=== PATIENT | male | born 1995 | race Caucasian/White ===

== ENCOUNTER 2019-02-20 11:18 | Emergency (ER) | payer OTHER, SELFPAY ==
[2019-02-20 11:20] VITALS: BP 147/81; PULSE 88; RESP 14; TEMP 36.7; O2SAT 98
--- NOTE | 2019-02-20 11:35 | W.ED.GENAD ---
Discharge Plan Disposition Patient Disposition: HOME Condition: Good Discharge Details Chief Complaint: Orthopedic Clinical Impression: Laceration of right wrist Primary Care Provider: Akash Perdomo ED Provider: Anabell Carpenter Home Meds and New Rx's Prescriptions: New ibuprofen 600 mg tablet 600 mg PO QID PRN (Reason: pain) Qty: 20 RF: 0 Discharge Instructions Instructions: Laceration (ED) Additional Instructions: Encourage rest, ice, elevation. Tylenol and/or ibuprofen as needed for discomfort. Continue to use the wrist brace to help with discomfort. You will need follow-up with occupational health, please call the number listed below to schedule follow-up appointment next week. Suture removal as advised by previous emergency department. Please continue to monitor wound for signs of infection including redness, warmth, drainage, increased pain, fever/chills. If you develop these or other new/worsening symptoms please seek care urgently once again Stand Alone Forms: Work Release Referrals: Khadijah Maria MD [ [facility] STAFF PHYSICIAN] - (occupational health: [phone]) Akash Perdomo [Primary Care Provider] - Medical Decision Making Patient is a 24 year old RHD male presenting today with c/c of right wrist pain. 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 Reports at that time he fell onto a pain slicing the anterior aspect of the wrist. Patient has a 5 cm laceration that appears will well approximated with simple interrupted sutures were placed at an outside emergency department. He reports that while the wound appears to be healing quite well, he continues to have discomfort has been making it difficult for him to perform his typical daily activities. States that the pain from the laceration seems to radiate proximally. No pain with range of motion of the elbow, full range of motion of the elbow and forearm. Full range of motion of the wrist with discomfort elicited only around the laceration. Two-point discrimination is intact although the patient is endorsing some tingling into the right ring finger. No ligamentous deficits noted. He reports this is also assessed at the outside facility without any evidence of ligamentous or bony abnormalities. Patient reports his primary reason for being here is for a work note. Work note will be given. As advised that dressing the wound and applying a wrist brace may help with his discomfort as it is directly over the extensor surface. We discussed the signs symptoms of infection and when to seek care urgently once again. Advised he have sutures out as advised by previous ED. I advised that he will need to be reassessed by occupational health, contacted them but they are unable to remove sutures. He will contact them to schedule follow up. Prescription for Ibuprofen was given as was work note. All of his quesitons and concerns were addressed, he is in agreement with this plan. HPI General Mode of arrival: ambulatory. Date/Time Provider Initiated Documentation: 02/20/19 11:18. Limitations to Documentation: no limitations. Information obtained by: patient and RN notes reviewed. History of Present Illness 24 year old M presents to the emergency department with the chief complaint of right wrist pain, described as moderate, with intensity rated at 5. Quality is described as aching, and is localized to the right and upper extremity. Patient proximal. Patient started experiencing this day(s) (5) and it has been intermittent. Immobilization improves symptom(s), Movement worsens symptoms . Patient notes other (tingling right ring finger). Patient did receive the following treatments prior to arrival, other (sutures placed) Related Data Home Medications Medication Instructions Recorded Confirmed ibuprofen 600 mg PO QID PRN #20 tab 02/20/19 Previous Rx's Medication Instructions Recorded ibuprofen 600 mg PO QID PRN #20 tab 02/20/19 Allergies Allergy/AdvReac Type Severity Reaction Status Date / Time No Known Allergies Allergy Unverified 02/20/19 11:25 General Stated Complaint: Orthopedic AYLEEN: 3 Review of Systems Constitutional Reports as per HPI, Denies chills, Denies fever(s), Denies headache(s) and Denies weakness ENT Denies headache(s) Cardiovascular Reports as per HPI Respiratory Reports as per HPI and Denies cough Musculoskeletal Reports as per HPI and Reports tingling Integumentary/Breasts Reports as per HPI, Denies rash and Denies wounds Neurologic Reports as per HPI, Denies headache(s), Reports tingling, Denies paresthesias and Denies weakness PFSH Family History Mother No problems noted. Father No problems noted. Sister No problems noted. Brother No problems noted. Grandfather No problems noted. Grandfather No problems noted. Grandmother No problems noted. Grandmother No problems noted. Other Asthma Hyperlipidemia Social History Smoking/Tobacco Use Status: Current every day Alcohol Intake: never Drug use: Daily Substance use type: marijuana Do you feel safe at home: Yes Do you feel safe in your relationship?: Yes Exam Const General: cooperative, healthy appearing, comfortable, no acute distress, well developed and well groomed Nutritional Appearance: average body habitus and well nourished Orientation: alert and awake Resp Effort & Inspection: normal respiratory effort, able to speak in complete sentences and no respiratory distress Cardio Rate: regular rate Rhythm: regular rhythm Skin Trauma: laceration (anterior right wrist 5cm, sutured) Neuro General: alert and awake Cognition: normal cognition Speech: speech normal Gait: normal gait Motor: muscle tone normal throughout Sensory Exam: no sensory deficits noted (2 point discrimination intact) Extrem General: full ROM, normal capillary refill, no joint enlargement and normal gait Right upper extremity: full ROM, normal capillary refill, no joint enlargement, elbow/forearm Details: normal to inspection and normal ROM; no tenderness and no swelling and wrist Details: tenderness (around laceration) Location: not of the anatomic snuffbox, swelling (soft tissue around laceration), normal ROM and laceration; no unusual warmth, no ecchymosis and no deformity; abnormal to inspection (laceration as above) Psych Appearance: grossly normal and well kempt Mental Status: mental status grossly normal Speech and Movement: speech and movement normal Course Vital Signs Temperature 36.7 C 02/20/19 11:20 Pulse 88 02/20/19 11:20 Respiratory Rate 14 02/20/19 11:20 Blood Pressure 147/81 H 02/20/19 11:20 Pulse Oximetry 98 02/20/19 11:20 Temperature 36.7 C 02/20/19 11:20 Temperature Source Skin 02/20/19 11:20 Pulse 88 02/20/19 11:20 Respiratory Rate 14 02/20/19 11:20 Respiratory Effort 02/20/19 11:27 Blood Pressure 147/81 H 02/20/19 11:20 Blood Pressure Position Sitting 02/20/19 11:20 Pulse Oximetry 98 02/20/19 11:20 Oxygen Delivery Method Room Air 02/20/19 11:20 Oxygen Flow Rate 0 02/20/19 11:20 Pain Level 5 02/20/19 11:20
--- NOTE | 2019-02-20 11:45 | ED.GENADUL_ITS ---
Discharge Plan Disposition Patient Disposition: HOME Condition: Good Discharge Details Chief Complaint: Orthopedic Clinical Impression: Laceration of right wrist Primary Care Provider: Akash Perdomo ED Provider: Anabell Carpenter Home Meds and New Rx's Prescriptions: New ibuprofen 600 mg tablet 600 mg PO QID PRN (Reason: pain) Qty: 20 RF: 0 Discharge Instructions Instructions: Laceration (ED) Additional Instructions: Encourage rest, ice, elevation. Tylenol and/or ibuprofen as needed for discomfort. Continue to use the wrist brace to help with discomfort. You will need follow-up with occupational health, please call the number listed below to schedule follow-up appointment next week. Suture removal as advised by previous emergency department. Please continue to monitor wound for signs of infection including redness, warmth, drainage, increased pain, fever/chills. If you develop these or other new/worsening symptoms please seek care urgently once again Stand Alone Forms: Work Release Referrals: Khadijah Maria MD [ [facility] STAFF PHYSICIAN] - (occupational health: [phone]) Akash Perdomo [Primary Care Provider] - Medical Decision Making Patient is a 24 year old RHD male presenting today with c/c of right wrist pain. 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 Reports at that time he fell onto a pain slicing the anterior aspect of the wrist. Patient has a 5 cm laceration that appears will well approximated with simple interrupted sutures were placed at an outside emergency department. He reports that while the wound appears to be healing quite well, he continues to have discomfort has been making it difficult for him to perform his typical daily activities. States that the pain from the laceration seems to radiate proximally. No pain with range of motion of the elbow, full range of motion of the elbow and forearm. Full range of motion of the wrist with discomfort elicited only around the laceration. Two-point discrimination is intact although the patient is endorsing some tingling into the right ring finger. No ligamentous deficits noted. He reports this is also assessed at the outside facility without any evidence of ligamentous or bony abnormalities. Patient reports his primary reason for being here is for a work note. Work note will be given. As advised that dressing the wound and applying a wrist brace may help with his discomfort as it is directly over the extensor surface. We discussed the signs symptoms of infection and when to seek care urgently once again. Advised he have sutures out as advised by previous ED. I advised that he will need to be reassessed by occupational health, contacted them but they are unable to remove sutures. He will contact them to schedule follow up. Prescription for Ibuprofen was given as was work note. All of his quesitons and concerns were addressed, he is in agreement with this plan. HPI General Mode of arrival: ambulatory . Date/Time Provider Initiated Documentation: 02/20/19 11:18 . Limitations to Documentation: no limitations . Information obtained by: patient and RN notes reviewed . History of Present Illness 24 year old M presents to the emergency department with the chief complaint of right wrist pain, described as moderate, with intensity rated at 5. Quality is described as aching, and is localized to the right and upper extremity. Patient proximal. Patient started experiencing this day(s) (5) and it has been intermittent. Immobilization improves symptom(s), Movement worsens symptoms . Patient notes other (tingling right ring finger). Patient did receive the following treatments prior to arrival, other (sutures placed) Related Data Home Medications Medication Instructions Recorded Confirmed ibuprofen 600 mg PO QID PRN #20 tab 02/20/19 Previous Rx's Medication Instructions Recorded ibuprofen 600 mg PO QID PRN #20 tab 02/20/19 Allergies Allergy/AdvReac Type Severity Reaction Status Date / Time No Known Allergies Allergy Unverified 02/20/19 11:25 General Stated Complaint: Orthopedic AYLEEN: 3 Review of Systems Constitutional Reports as per HPI, Denies chills, Denies fever(s), Denies headache(s) and Denies weakness ENT Denies headache(s) Cardiovascular Reports as per HPI Respiratory Reports as per HPI and Denies cough Musculoskeletal Reports as per HPI and Reports tingling Integumentary/Breasts Reports as per HPI, Denies rash and Denies wounds Neurologic Reports as per HPI, Denies headache(s), Reports tingling, Denies paresthesias and Denies weakness PFSH Family History Mother No problems noted. Father No problems noted. Sister No problems noted. Brother No problems noted. Grandfather No problems noted. Grandfather No problems noted. Grandmother No problems noted. Grandmother No problems noted. Other Asthma Hyperlipidemia Social History Smoking/Tobacco Use Status: Current every day Alcohol Intake: never Drug use: Daily Substance use type: marijuana Do you feel safe at home: Yes Do you feel safe in your relationship?: Yes Exam Const General: cooperative, healthy appearing, comfortable, no acute distress, well developed and well groomed Nutritional Appearance: average body habitus and well nourished Orientation: alert and awake Resp Effort & Inspection: normal respiratory effort, able to speak in complete sentences and no respiratory distress Cardio Rate: regular rate Rhythm: regular rhythm Skin Trauma: laceration (anterior right wrist 5cm, sutured) Neuro General: alert and awake Cognition: normal cognition Speech: speech normal Gait: normal gait Motor: muscle tone normal throughout Sensory Exam: no sensory deficits noted (2 point discrimination intact) Extrem General: full ROM, normal capillary refill, no joint enlargement and normal gait Right upper extremity: full ROM, normal capillary refill, no joint enlargement, elbow/forearm Details: normal to inspection and normal ROM; no tenderness and no swelling and wrist Details: tenderness (around laceration) Location: not of the anatomic snuffbox, swelling (soft tissue around laceration), normal ROM and laceration; no unusual warmth, no ecchymosis and no deformity; abnormal to inspection (laceration as above) Psych Appearance: grossly normal and well kempt Mental Status: mental status grossly normal Speech and Movement: speech and movement normal Course Vital Signs Temperature 36.7 C 02/20/19 11:20 Pulse 88 02/20/19 11:20 Respiratory Rate 14 02/20/19 11:20 Blood Pressure 147/81 H 02/20/19 11:20 Pulse Oximetry 98 02/20/19 11:20 Temperature 36.7 C 02/20/19 11:20 Temperature Source Skin 02/20/19 11:20 Pulse 88 02/20/19 11:20 Respiratory Rate 14 02/20/19 11:20 Respiratory Effort 02/20/19 11:27 Blood Pressure 147/81 H 02/20/19 11:20 Blood Pressure Position Sitting 02/20/19 11:20 Pulse Oximetry 98 02/20/19 11:20 Oxygen Delivery Method Room Air 02/20/19 11:20 Oxygen Flow Rate 0 02/20/19 11:20 Pain Level 5 02/20/19 11:20
--- NOTE | 2019-02-20 13:40 | PDOC.ERCMPRO ---
Care Management Progress Note 02/20-Anabell QUINTERO requested assistance with a Occupational Health f/u for laceration of right wrist. This is a work related injury. 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 Alexander was seen in another emergency department about 5 days ago for stitches. Presents to [facility] ED today for pain. Alexander works for [employer]. This CM called Occupation Health an spoke with NORAH Ramirez who stated they could see Alexander in f/u. Marlin at [facility] scheduled patient for Monday, 02/26 at 3:00. This CM called Alexander and he states he can make this appt.
--- NOTE | 2019-02-20 13:43 | CMPROGNOTE_ITS ---
Care Management Progress Note 02/20-Anabell QUINTERO requested assistance with a Occupational Health f/u for laceration of right wrist. This is a work related injury. 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 Alexander was seen in another emergency department about 5 days ago for stitches. Presents to [facility] ED today for pain. Alexander works for [employer]. This CM called Occupation Health an spoke with NORAH Ramirez who stated they could see Alexander in f/u. Marlin at [facility] scheduled patient for Monday, 02/26 at 3:00. This CM called Alexander and he states he can make this appt.
== END 2019-02-20 12:10 | disposition home or self-care (01) ==
LOC: ER 12:48
PROVIDERS: Emergency Provider Physician Assistant; PCP Family Medicine
DX: M25.531 Pain in right wrist (principal); S61.511D Laceration without foreign body of right wrist, subsequent encounter; R20.2 Paresthesia of skin; W45.8XXD Other foreign body or object entering through skin, subsequent encounter
CPT/HCPCS: 29125; 99283; 99282; L3908

== ENCOUNTER 2019-02-22 08:16 | Emergency (ER) | payer OTHER, SELFPAY ==
[2019-02-22 08:18] VITALS: BP 131/76; PULSE 112; RESP 18; TEMP 37.1; O2SAT 97
--- NOTE | 2019-02-22 08:40 | ED.GENADUL_ITS ---
Discharge Plan Disposition Patient Disposition: HOME Condition: Stable Discharge Details Chief Complaint: SutureRem Clinical Impression: Visit for suture removal, Cellulitis Primary Care Provider: Akash Perdomo ED Provider: Cate Guerrier Home Meds and New Rx's Prescriptions: New cephalexin [Keflex] 500 mg capsule 500 mg PO QID 7 Days Qty: 28 RF: 0 Continued ibuprofen 600 mg tablet 600 mg PO QID PRN (Reason: pain) Qty: 20 RF: 0 Discharge Instructions Instructions: Stitches Removal (ED), Cellulitis (ED) Additional Instructions: You had 5 sutures removed today. You have [address] to hold the edges together to allow the wound to have more time to heal. You have very mild redness noted at the laceration site which could be signs of a early mild skin infection. Apply topical triple antibiotic ointment to the wound site twice daily. Start the oral antibiotics today. Return to the emergency department in 2 days to have the remaining 6 sutures removed. Keep the wound clean, dry and covered. Avoid heavy lifting or heavy movement at the right wrist to prevent further opening of your wound. Discharge Data Discharge Physician: Cate Guerrier Medical Decision Making 24-year-old male who presents the ED for suture removal of right wrist laceration with sutures placed 7 days ago. Patient seen here 2 days ago for pain around wound and tingling in right fourth finger and requesting a work note. He was found to be cleared for discharge at that time and was given a prescription for ibuprofen. Still admits to some pain around the wound and still with tingling in right fourth finger. Vitals within normal limits. Patient appears nontoxic. There is minimal surrounding erythema and edema around the sutures. There is no abscess. He is neurovascularly intact. Discussed with patient that the symptoms of pain can be expected and might be slightly worse due to a minimal cellulitis. As for the tingling in the right fourth finger, discussed that due to the laceration, he may have tingling there that may last for several months as the wound heals. He is otherwise neurovascularly intact and has no focal deficits. As the sutures were being removed, the wound was opening in these places. Therefore only 5 sutures were removed in between and 6 sutures left remaining. As the wound is technically over the wrist joint, will plan to keep remaining sutures in place for the next 2 days with plan for patient to return in 2 days from now for suture removal of remaining sutures. Due to mild cellulitis, patient instructed to apply topical antibiotic ointment and will also send him with a prescription for Keflex. HPI General Mode of arrival: ambulatory . Date/Time Provider Initiated Documentation: 02/22/19 08:20 . Limitations to Documentation: no limitations . Information obtained by: patient . HPI Narrative: Patient is a 24-year-old male who presents for suture removal of his right wrist. Patient sustained a right wrist laceration with a slip and fall and hitting his right wrist on a plate at work. 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 Patient was seen at [facility] 1 week ago and had 11 sutures placed to his right wrist. Patient presented here 2 days ago for evaluation of pain around wound and tingling in his right fourth finger and requesting a work note. Patient still admits to pain around the wound site and tingling in his right fourth finger but otherwise denies any other acute complaints. Related Data Home Medications Medication Instructions Recorded Confirmed ibuprofen 600 mg PO QID PRN #20 tab 02/20/19 cephalexin [Keflex] 500 mg PO QID 7 Days #28 cap 02/22/19 Previous Rx's Medication Instructions Recorded ibuprofen 600 mg PO QID PRN #20 tab 02/20/19 cephalexin [Keflex] 500 mg PO QID 7 Days #28 cap 02/22/19 Allergies Allergy/AdvReac Type Severity Reaction Status Date / Time No Known Allergies Allergy Unverified 02/20/19 11:25 General Stated Complaint: SutureRem AYLEEN: 5 Review of Systems Review of Systems All systems reviewed & are unremarkable except as noted in HPI and below Constitutional Reports as per HPI, Denies chills and Denies fever(s) Eyes Denies blurry vision ENT Denies dizziness, Denies sore throat and Denies throat swelling Cardiovascular Denies chest pain and Denies dyspnea Respiratory Denies cough and Denies dyspnea Gastrointestinal Denies abdominal pain, Denies diarrhea and Denies vomiting Genitourinary Denies hematuria and Denies dysuria Musculoskeletal Denies back pain and Denies numbness Integumentary/Breasts Denies lesions and Denies rash Neurologic Denies dizziness, Denies focal weakness and Denies numbness Allergic/Immunologic Denies throat swelling [facility] Medical History Narcotic abuse (Chronic) Surgical History No significant past surgical history (Acute) Family History Mother No problems noted. Father No problems noted. Sister No problems noted. Brother No problems noted. Grandfather No problems noted. Grandfather No problems noted. Grandmother No problems noted. Grandmother No problems noted. Other Asthma Hyperlipidemia Social History Smoking/Tobacco Use Status: Current every day Alcohol Intake: never Drug use: Daily Substance use type: marijuana Do you feel safe at home: Yes Do you feel safe in your relationship?: Yes Exam Const General: cooperative, healthy appearing and no acute distress HENMT Head: normal to inspection Mouth: oral mucosae normal Eyes General: appearance normal, both eyes and all related structures Neck Neck: normal visual inspection Resp Effort & Inspection: normal respiratory effort and able to speak in complete sentences Cardio Rate: regular rate Skin General skin exam: no rashes or lesions noted Neuro General: alert, awake and oriented x3 Motor: muscle tone normal throughout Extrem Other: [address] on right volar wrist. There is very minimal surrounding erythema and edema around sutures. No significant tenderness to palpation. There is no drainage or bleeding. No fluctuance or induration. Psych Appearance: grossly normal Affect: normal affect Course Vital Signs Temperature 98.8 F 02/22/19 08:18 Pulse 112 H 02/22/19 08:18 Respiratory Rate 18 02/22/19 08:18 Blood Pressure 131/76 02/22/19 08:18 Pulse Oximetry 97 02/22/19 08:18 Temperature 98.8 F 02/22/19 08:18 Temperature Source Skin 02/22/19 08:18 Pulse 112 H 02/22/19 08:18 Respiratory Rate 18 02/22/19 08:18 Respiratory Effort Non-Labored 02/22/19 08:21 Blood Pressure 131/76 02/22/19 08:18 Pulse Oximetry 97 02/22/19 08:18 Oxygen Delivery Method Room Air 02/22/19 08:18 Oxygen Flow Rate 0 02/22/19 08:18
== END 2019-02-22 08:50 | disposition home or self-care (01) ==
PROVIDERS: Emergency Provider Physician Assistant; PCP Family Medicine
DX: L03.113 Cellulitis of right upper limb (principal)
CPT/HCPCS: 99283

== ENCOUNTER 2019-02-24 09:54 | Emergency (ER) | payer MEDICAID, SELFPAY ==
--- NOTE | 2019-02-24 10:02 | NUR.NOTE ---
left without seeing medical staff
--- NOTE | 2019-02-25 09:58 | PDOC.ERCMPRO ---
Care Management Progress Note 02/25-Alexander presented to the emergency department yesterday to have his stitches out. Called Alexander this am. Alexander states the the nurse told him the stitches were not ready to come out yet so he felt there was no reason to wait. Alexander also states he has an appt with [facility] tomorrow.
== END 2019-02-24 10:02 | disposition left before discharge ==
PROVIDERS: PCP Family Medicine
DX: Z53.21 Procedure and treatment not carried out due to patient leaving prior to being seen by health care provider (principal)